=== PATIENT | female | born 1960 | race Caucasian/White ===

== ENCOUNTER 2023-11-06 04:55 | Inpatient (IN) ==
[2023-11-06 05:47] LABS: Basophils # (auto) 0.03 K/uL (0.00-0.20); Basophils % (auto) 0.5 %; Eosinophils # (auto) 0.04 K/uL (0.00-0.50); Eosinophils % (auto) 0.6 %; Immature Granulocytes # (auto) 0.01 K/uL (0.01-0.20); Immature Granulocytes % (auto) 0.2 %; Lymphocytes # (auto) 0.58 K/uL (1.20-3.40); Mean Corpuscular Hemoglobin 29.4 pg (25.0-34.0); Mean Corpuscular Hgb Conc 30.4 g/dL (32.0-36.0); Mean Corpuscular Volume 96.4 fL (80.0-100.0); Mean Platelet Volume 10.7 fL (9.4-12.4); Monocytes # (auto) 0.45 K/uL (0.11-0.59); Neutrophils % (auto) 82.7 %; Platelet Count 109 K/uL (130-400); RDW Coefficient of Variation 12.8 % (11.5-14.5); RDW Standard Deviation 46.3 fL (36.4-46.3); Red Blood Count 4.77 M/uL (4.20-5.40); White Blood Count 6.41 K/ul (4.8-10.8)
[2023-11-06 05:56] LABS: Alanine Aminotransferase 13 U/L (7-52); Albumin Globulin Ratio 1.2 (0.9-2); Albumin Level 3.6 gm/dl (3.4-5.0); Alkaline Phosphatase 83 U/L (34-104); Aspartate Aminotransferase 29 U/L (13-39); Bilirubin,Total 0.8 mg/dl (0.2-1.0); Blood Urea Nitrogen 25 mg/dl (6-23); Calcium 9.2 mg/dl (8.6-10.3); Carbon Dioxide > 45 mmol/L (21-32); Chloride 91 mmol/L (98-107); Creatinine Clr Calc Pharmacy 57.2 ml/min; Est GFR (African American) 66.7 ml/min; Est GFR (Non-African American) 57.5 ml/min; Globulin 2.9 gm/dl (2.5-4.0); Glucose 111 mg/dl (70-99(Fasting)); Potassium 4.9 mmol/L (3.5-5.1); Sodium 139 mmol/L (136-145); Total Protein 6.5 gm/dl (6.0-8.3)
[2023-11-06] MEDS: FUROSEMIDE 40 MG/4 ML VIAL IV ONE (06:10)
--- NOTE | 2023-11-06 06:11 | Emergency Department Note ---
Impression & Plan CHF exacerbation, Acute respiratory failure with hypoxia and hypercarbia ED Provider Note NAME: ZULEYKA SIMON AGE: 62 SEX: F : 1960 ARRIVES VIA: Ambulance INFORMANT: Patient, ED PROVIDER(S): Prashant Gonzalez MD CHIEF COMPLAINT: Shortness of breath, tooth pain HPI: This is a 62-year-old female presenting for shortness of breath. Patient states that whenever she lays flat she cannot breathe. She has not her legs are more swollen. She think she has CHF. EMS states that son thought she was confused. Patient was found to be hypoxic into the 70s/80s, she states she wears home oxygen only at night and was not wearing this tonight. Otherwise she notes no fevers, chills. No nausea vomiting or diarrhea. Patient also mentions a crooked tooth that is causing her slight pain ROS: See above HPI for pertinent positives & negatives. A total of 10 systems reviewed and were otherwise negative. PHYSICAL EXAMINATION: General: resting comfortably in no acute distress Head: Normocephalic and atraumatic Eyes: Normal inspection, extraocular muscles intact Ear, nose, throat: Normal external exam, numerous other caries and missing teeth Neck: Normal range of motion Respiratory: Crackles at the bases Cardiovascular: Regular rate/rhythm, no murmur GI: soft, nontender, no guarding or rebound Extremities: 2+ pitting edema Neuro: The patient awake and alert, appropriately conversive, no focal deficits, symmetric faces Skin: Warm, dry, and intact MEDICAL DECISION MAKING: This is a 62-year-old female presenting for shortness of breath. Concern for CHF versus pneumonia versus low concern for PE clinically. Patient desats to around 83% on room air when taken off oxygen while talking to me. She cannot lay flat and has orthopnea with bilateral lower extremity edema. -Unrelated she mentions a sideways growing tooth is causing her discomfort but she has no current pain, swelling. She has significantly poor dentition with numerous missing teeth. No acute abscess or infection noted. Her tooth is stable. -Chest x-ray as independently interpreted by me reveals bilateral pleural effusions, cardiomegaly. Patient given Lasix at this time -Blood work is reviewed show no significant leukocytosis or anemia. CO2 was elevated over 45. -VBG does show hypercarbia again, without acidosis. 7.4/80. Will place patient on BiPAP for this hypercarbia. -Overall patient appears well, is now more lucid after being on oxygen and tells me about her extensive history of CHF and being on Lasix and torsemide by her correctional program specialist at [place]. She does go to [place] as well for second opinion. -Will require admission for likely CHF exacerbation, hypoxia and hypercarbia -Discussed care with Dr. Epperson for admission Differential diagnosis: CHF, COPD, ACS, PE, hypercarbia, hypoxia ER treatment provided: See below Diagnostics interpreted by me: ECG: ECG independently interpreted by me with normal sinus rhythm, rate of 100,, normal MT, normal QRS, normal QTc, no ST segment elevations consistent with STEMI criteria Cardiac Monitoring: An order was placed for continuous cardiac monitoring. The monitor shows a rate of 92 with sinus rhythm. Laboratory studies: As stated above and show below. Imaging studies: See below. Past Med/Surg History Problem List (Updated 11/06/23 @ 07:52 by Prashant Gonzalez MD) Acute respiratory failure with hypoxia and hypercarbia (Acute) CHF exacerbation (Acute) Social History Smoking Status: Never smoker Preferred Language: Chinese Feels Safe at Home: Yes Results & Data (ED) Vital Signs Vital Signs - 24 hr 11/06/23 05:03 11/06/23 05:03 11/06/23 05:23 Temperature 37.7 C H Temperature Source Oral Pulse Rate 102 H 99 H 103 H Pulse Rate from SpO2 Sensor 99 H Respiratory Rate 27 H 27 H Respiratory Effort / Characteristics Respiratory Depth Respiratory Pattern Blood Pressure 115/90 115/90 Blood Pressure Mean 98 98 Pulse Oximetry 92 83 L Oxygen Delivery Method Room Air Oxygen Flow Rate Fraction of Inspired Oxygen Sepsis Recent Fever Within 48 Hours No Sepsis New/Unexplained Change in Mental Status Yes Sepsis Action Taken by Nursing No Action Required 11/06/23 05:31 11/06/23 05:42 11/06/23 06:30 Temperature Temperature Source Pulse Rate 95 H 95 H Pulse Rate from SpO2 Sensor 99 H 95 H Respiratory Rate 26 H 27 H Respiratory Effort / Characteristics Respiratory Depth Respiratory Pattern Blood Pressure 167/92 H 125/89 Blood Pressure Mean 117 101 Pulse Oximetry 93 94 94 Oxygen Delivery Method Nasal Cannula Oxygen Flow Rate 2 Fraction of Inspired Oxygen Sepsis Recent Fever Within 48 Hours Sepsis New/Unexplained Change in Mental Status Sepsis Action Taken by Nursing 11/06/23 07:03 Temperature Temperature Source Pulse Rate 92 H Pulse Rate from SpO2 Sensor Respiratory Rate 18 Respiratory Effort / Characteristics Non-Labored Spontaneous Respiratory Depth Normal Respiratory Pattern Regular Blood Pressure Blood Pressure Mean Pulse Oximetry 96 Oxygen Delivery Method Oxygen Flow Rate Fraction of Inspired Oxygen 30 Sepsis Recent Fever Within 48 Hours Sepsis New/Unexplained Change in Mental Status Sepsis Action Taken by Nursing Laboratory Data 11/06/23 05:20 11/06/23 05:20 Lab Results 11/06/23 11/06/23 Range/Units 05:20 06:28 WBC 6.41 (4.8-10.8) K/ul RBC 4.77 (4.20-5.40) M/uL Hgb 14.0 (12.0-16.0) g/dl Hct 46.0 (37.0-47.0) % MCV 96.4 (80.0-100.0) fL MCH 29.4 (25.0-34.0) pg MCHC 30.4 L (32.0-36.0) g/dL RDW Std Deviation 46.3 (36.4-46.3) fL RDW Coeff of Lydia 12.8 (11.5-14.5) % Plt Count 109 L (130-400) K/uL MPV 10.7 (9.4-12.4) fL Immature Gran % (Auto) 0.2 % Neut % (Auto) 82.7 % Lymph % (Auto) 9.0 % [place] % (Auto) 7.0 % Eos % (Auto) 0.6 % Baso % (Auto) 0.5 % Neut # (Auto) 5.30 (1.40-6.50) K/uL Lymph # (Auto) 0.58 L (1.20-3.40) K/uL [place] # (Auto) 0.45 (0.11-0.59) K/uL Eos # (Auto) 0.04 (0.00-0.50) K/uL Baso # (Auto) 0.03 (0.00-0.20) K/uL Immature Gran # (Auto) 0.01 (0.01-0.20) K/uL VBG pH 7.42 H (7.36-7.41) VBG pCO2 80 H (38-50) mmHg VBG pO2 26 mmHg VBG HCO3 52 mmol/L VBG O2 Saturation < 60.0 % VBG Base Excess 22.4 mEq/L Sodium 139 (136-145) mmol/L Potassium 4.9 (3.5-5.1) mmol/L Chloride 91 L (98-107) mmol/L Carbon Dioxide > 45 H* (21-32) mmol/L Anion Gap TNP BUN 25 H (6-23) mg/dl Creatinine 1.04 (0.6-1.2) mg/dl Est Cr Clr Drug Dosing 57.2 ml/min Est GFR ( Amer) 66.7 ml/min Est GFR (Non-Af Amer) 57.5 ml/min BUN/Creatinine Ratio 24.0 H (10-20) Glucose 111 H (70-99(Fasting)) mg/dl Calcium 9.2 (8.6-10.3) mg/dl Total Bilirubin 0.8 (0.2-1.0) mg/dl AST 29 (13-39) U/L ALT 13 (7-52) U/L Alkaline Phosphatase 83 (34-104) U/L Troponin I High Sens 6.2 (0-14) pg/ml B-Natriuretic Peptide 71 (0-100) pg/ml Total Protein 6.5 (6.0-8.3) gm/dl Albumin 3.6 (3.4-5.0) gm/dl Globulin 2.9 (2.5-4.0) gm/dl Albumin/Globulin Ratio 1.2 (0.9-2) Administered Medications Discontinued Medications Furosemide (Furosemide 40 Mg/4 Ml Vial) 40 mg IV ONE ONE Stop: 11/06/23 05:49 Last Admin: 11/06/23 06:10 Dose: 40 mg Documented By: Imaging Data Radiologist's Impression: Chest X-Ray 11/06/23 05:19 XR chest 1V portable CLINICAL HISTORY: SOB, hypoxia, CHF COMPARISON STUDY: No previous studies for comparison. FINDINGS: There are low lung volumes with suspected elevation of the right hemidiaphragm. Bilateral pleural effusions are noted, right larger than left with associated bibasilar opacities. There is no pneumothorax. Suspected cardiomegaly. Interstitial thickening is noted. IMPRESSION: 1. Cardiomegaly with interstitial pulmonary edema. 2. Bilateral pleural effusions, right larger than left. These are likely at least moderate in size. Associated bibasilar opacities could reflect atelectasis or consolidation. ACT 112: Negative or not required by law. Electronically signed by: Marcel Clements M.D. 11/06/2023 6:26 AM Discharge Plan Visit Data Chief Complaint: Illness Stated Complaint: Jaw Issues ED Provider: Prashant Gonzalez Discharge Problem: CHF exacerbation, Acute respiratory failure with hypoxia and hypercarbia Forms Stand Alone Forms: [facility] Referrals Referrals: Angelo Alexis, [Primary Care Provider] -
[2023-11-06 06:22] LABS: Troponin I High Sensitivity 6.2 pg/ml (0-14)
--- NOTE | 2023-11-06 06:27 | XRay Report ---
XR chest 1V portable CLINICAL HISTORY: SOB, hypoxia, CHF COMPARISON STUDY: No previous studies for comparison. FINDINGS: There are low lung volumes with suspected elevation of the right hemidiaphragm. Bilateral p leural effusions are noted, right larger than left with associated bibasilar opacities. There is no p neumothorax. Suspected cardiomegaly. Interstitial thickening is noted. IMPRESSION: 1. Cardiomegaly with interstitial pulmonary edema. 2. Bilateral pleural effusions, right larger than left. These are likely at least moderate in size. A ssociated bibasilar opacities could reflect atelectasis or consolidation. ACT 112: Negative or not required by law. Electronically signed by: Marcel Clements M.D. 11/06/2023 6:26 AM
[2023-11-06 06:38] LABS: Base Excess VBG 22.4 mEq/L; HCO3 VBG 52 mmol/L; Oxygen Saturation VBG < 60.0 %; PCO2 VBG 80 mmHg (38-50); PO2 VBG 26 mmHg; pH VBG 7.42 (7.36-7.41)
--- NOTE | 2023-11-06 07:38 | History & Physical Report ---
Date of Service November 06, 2023 Assessment & Plan (1) Acute respiratory failure with hypoxia and hypercarbia: Plan: Presents with worsening weight gain, peripheral edema, abdominal discomfort, orthopnea and shortness of breath over several months Chest x-ray consistent with heart failure. She is on torsemide every other day at home but no old records available at this time. Interestingly, BNP is normal but she is obese so could be falsely low. No ischemic changes on ECG and troponin negative Hypoxic to 83% on arrival on room air-placed on supplemental O2 Admit to PCU for telemetry monitoring for arrhythmia Continue Lasix 40 Mg IV twice daily Check echocardiogram Follow BMP magnesium and replace electrolytes as needed Also with history of possible COPD as she is on maintenance inhalers, but no wheezing on examination. She does have significant chronic metabolic alkalosis which is compensatory with a normal pH on VBG and elevated CO2 Use BiPAP at bedtime and will see if can get qualified for home BiPAP Follows with pulmonology as an outpatient Keep pulse ox greater than 88% with supplemental O2 and wean off as able to (2) CHF exacerbation: Plan: As noted above, unclear if EF preserved or not Check echo, give IV Lasix Strict I's and O's, daily weights, low-sodium diet, fluid restrict (3) Diabetes mellitus type 2 in obese: Plan: Continue Lantus 25 units twice a day and NovoLog sliding scale Check hemoglobin A1c in the morning, Accu-Cheks before meals and at bedtime (4) Cirrhosis: Plan: As per history from her sister, patient unaware of this diagnosis This would account for her mild thrombocytopenia. LFTs are normal Continue to keep bowels moving with Linzess Follows with GI Some of her mild confusion could be from hyperammonemia but this was not checked on admission (5) HTN (hypertension), benign: Plan: Blood pressures are controlled Continue home lisinopril, giving IV Lasix (6) COPD (chronic obstructive pulmonary disease): Plan: Continue maintenance inhaler No acute exacerbation Obtain pulmonology records (7) Depression with anxiety: Plan: Reports of her son in May and after a long illness, she was depressed about his illness Continue home buspirone and as needed lorazepam Consider addition of SSRI (8) Thrombocytopenia: Plan: Likely secondary to cirrhosis Follow CBC (9) GERD (gastroesophageal reflux disease): Plan: Continue PPI Plan Chronic pain/neuropathy-continue gabapentin, tramadol as needed Allergies-continue cetirizine as needed DVT prophylaxis-Lovenox SQ Disposition-admit to PCU Full code and reports she would like her sister and her son to be her decision makers if she is unable to make decisions History of Present Illness Chief Complaint: Shortness of breath Primary Care Provider: Angelo Alexis, DO This patient is a 62-year-old female with a history of possible COPD from secondhand smoke, DM 2, CHF, cirrhosis of the liver, allergies, neuropathy, HTN, chronic constipation, and anxiety/depression who presents to the ER with ongoing and worsening shortness of breath, orthopnea, leg swelling and weight gain over the last several months. She complains of chronic upper abdominal pressure as well. She reports being in and out of [facility] a couple of times and has been seen by a piggyback clerk and oral surgery physician. Her sister later called in and told the nurse that the patient was recently diagnosed with cirrhosis of the liver. Patient also complains of pain in the right side of the jaw that came on acutely after using a Q-tip yesterday and complains of painful teeth that are "rotten." Denies fevers or chills, denies productive cough. No blood in her stool or urine. She was noted initially to be mildly confused in the ER but this improved after she was placed on supplemental oxygen and her hypoxia improved. She was then placed on BiPAP for her elevated CO2 levels. In the ER, she was noted to be hypoxic to 83% on room air and significantly hypercapnic but her pH was normal on VBG. Chest x-ray was consistent with cardiomegaly and pulmonary edema with pleural effusions. She was given a dose of IV Lasix. Allergies Allergy/AdvReac Type Severity Reaction Status Date / Time amoxicillin Allergy Severe Caused Unverified 11/06/23 08:33 itching in joints Penicillins Allergy Severe Caused Unverified 11/06/23 08:33 itching in joints vancomycin AdvReac Severe Caused Unverified 11/06/23 08:33 Kidney Damage Home Medications Medication Instructions Recorded Confirmed Type albuterol sulfate 90 mcg/actuation 2 puff inhalation Q3H PRN 11/06/23 11/06/23 History aerosol inhaler Shortness Of Breath Or Wheezing buspirone 10 mg tablet 10 mg PO TID 11/06/23 11/06/23 History fluticasone furoate 100 1 inh inhalation DAILY 11/06/23 11/06/23 History mcg/actuation blister powder for inhalation (Arnuity Ellipta) gabapentin 100 mg capsule 100 mg PO TID 11/06/23 11/06/23 History insulin glargine 100 unit/mL (3 25 unit subcut BID 11/06/23 11/06/23 History mL) subcutaneous pen (Lantus Solostar U-100 Insulin) levocetirizine 5 mg tablet 5 mg PO QPM 11/06/23 11/06/23 History linaclotide 72 mcg capsule 72 mcg PO DAILY 11/06/23 11/06/23 History (Linzess) lisinopril 5 mg tablet 5 mg PO DAILY 11/06/23 11/06/23 History lorazepam 0.5 mg tablet 0.5 mg PO BID PRN severe anxiety 11/06/23 11/06/23 His tory meloxicam 15 mg tablet 15 mg PO DAILY 11/06/23 11/06/23 History pantoprazole 40 mg tablet,delayed 40 mg PO DAILY 11/06/23 11/06/23 History release torsemide 20 mg tablet 20 mg PO Q OTHER DAY 11/06/23 11/06/23 History tramadol 50 mg tablet 50 mg PO Q6H PRN Severe Pain 11/06/23 11/06/23 History (Scale Score 7-10) Past Med/Surg History Problem List (Updated 11/07/23 @ 08:31 by Haleigh Epperson MD) Cirrhosis GERD (gastroesophageal reflux disease) COPD (chronic obstructive pulmonary disease) Thrombocytopenia Depression with anxiety HTN (hypertension), benign Diabetes mellitus type 2 in obese Acute respiratory failure with hypoxia and hypercarbia (Acute) CHF exacerbation (Acute) Family History (Updated 11/07/23 @ 08:24 by Haleigh Epperson MD) Other Family history non-contributory Social History (Updated 11/07/23 @ 08:24 by Haleigh Epperson MD) Smoking Status: Never smoker Second Hand Exposure: Yes; Hx Alcohol Use: No Hx Substance Use: No Preferred Language: Burmese Communication Ability: Effective Learning And Development Administrator Required: No Beliefs That Will Affect Care: None Current Living Situation: Family Current Living Situation Comment: lives with middle son Feels Safe at Home: Yes Assistive Devices: Cane and Walker Review of Systems Review of Systems: All systems reviewed & are unremarkable except as noted in HPI & below Physical Exam Constitutional: WD/WN, vitals as above Eyes: PERRL, conjunctivae normal, anicteric sclerae ENMT: external ear and nose normal, oropharynx normal Ears: no hearing impairment, no external ear abnormality, no EAC abnormality and no TM abnormality Neck: trachea midline, no thyromegaly Respiratory: normal respiratory effort; no cough Auscultation: + diminished lung sounds (At bases) and + crackles (Bibasilar); no rhonchi and no wheezes Cardiovascular: Rate/Rhythm: regular rate and regular rhythm Heart Sounds: no murmur Extremities: + edema (2+ pitting edema to the knees bilaterally) Gastrointestinal (Abdomen): normal bowel sounds, soft, nontender, no hepatosplenomegaly Skin: Chronic venous stasis changes left greater than right legs with small scabs on left leg Psychiatric: Orientation: alert, oriented to person, oriented to place and cooperative Genitourinary: Urine in vacuum canister clear and yellow Results & Data Results & Data Vital Signs (Past 12 Hours) Vital Signs Temp Pulse Resp BP Pulse Ox O2 Del Method O2 Flow Rate 11/06/23 07:03 92 H 18 96 11/06/23 06:30 95 H 27 H 125/89 94 11/06/23 05:42 95 H 26 H 167/92 H 94 11/06/23 05:31 93 Nasal Cannula 2 11/06/23 05:23 37.7 C H 103 H 27 H 115/90 83 L Room Air 11/06/23 05:03 99 H 27 H 115/90 92 11/06/23 05:03 102 H FiO2 11/06/23 07:03 30 11/06/23 06:30 11/06/23 05:42 11/06/23 05:31 11/06/23 05:23 11/06/23 05:03 11/06/23 05:03 Laboratory Results CBC, CMP, VBG, troponin, BNP, UA reviewed Diagnostic Findings Chest x-ray image personally reviewed by me and ordered further IV Lasix ECG Additional Comments: ECG on 11/06/2023 at 5:10 AM with normal sinus rhythm, rate 100, artifact but no obvious ischemic changes Code Status & VTE Plan Code Status Full code VTE Prophylaxis Plan VTE Prophylaxis will be ordered: Yes PG Care Time/CCT Total # of Minutes Spent Total Time Spent with Patient: Total time spent is greater than 50% in coordination of care (as documented) at patient's floor/unit and/or counseling patient: Coding Level of Care Code 53099 INT INP/OBS CARE 3/75MIN Diagnoses Acute respiratory failure with hypoxia and hypercarbia J96.01; J96.02 CHF exacerbation I50.9 Diabetes mellitus type 2 in obese E11.69; E66.9 Cirrhosis K74.60 HTN (hypertension), benign I10 COPD (chronic obstructive pulmonary disease) J44.9 Depression with anxiety F41.8 Thrombocytopenia D69.6 GERD (gastroesophageal reflux disease) K21.9
[2023-11-06] MEDS ORDERED: ONDANSETRON INJ 2 MG/ML 2 ML VIAL IV PRN (12:22)
[2023-11-06] MEDS ORDERED: CARBOHYDRATES FOR HYPOGLYCEMIA PO PRN (12:22)
[2023-11-06] MEDS ORDERED: ACETAMINOPHEN 325 MG TAB PO PRN (12:22)
[2023-11-06] MEDS ORDERED: DEXTROSE 50% 50 ML SYRINGE IV PRN (12:22)
[2023-11-06] MEDS ORDERED: GLUCOSE 40% GEL 15 GM TUBE PO PRN (12:22)
[2023-11-06] MEDS ORDERED: GLUCOSE 10 TAB/TUBE PO PRN (12:22)
[2023-11-06] MEDS ORDERED: ALBUTEROL HFA 8 GM INHALER INH PRN (12:22)
[2023-11-06] MEDS ORDERED: POLYETHYLENE (MIRALAX) 17 GM PACK PO PRN (12:22)
[2023-11-06] MEDS ORDERED: GLUCAGON FOR INJ 1 MG VIAL SQ PRN (12:22)
[2023-11-06] MEDS: FLUTICASONE FUROATE 100MCG 14 PUFFS/INHALER INH SCH (12:59)
[2023-11-06] MEDS: GABAPENTIN 100 MG CAP PO SCH (12:59)
[2023-11-06] MEDS: busPIRone 5 MG TAB PO SCH (12:59)
[2023-11-06] MEDS: PANTOprazole 40 MG TAB PO SCH (12:59)
[2023-11-06] MEDS: ENOXAPARIN INJ 40 MG/0.4 ML SYR SQ SCH (12:59)
[2023-11-06] MEDS: INSULIN ASPART PER UNIT CHARGE SC SCH (13:02)
--- NOTE | 2023-11-06 16:50 | XCELERA ---
[id number]
[2023-11-06] MEDS: FUROSEMIDE 40 MG/4 ML VIAL IV SCH (17:10)
[2023-11-06 19:19] LABS: Appearance Urine Cloudy (Clear); Bilirubin Urine Negative (Negative); Blood Urine Negative (Negative); Cast Urine Automated 0-2 /lpf (0-2); Color Urine Yellow; Epithelial Cell Urine Auto 0-2 /hpf (0-2); Glucose Urine UA Negative (Negative); Ketones Urine Negative (Negative); Leukocyte Esterase Urine Trace (Negative); Nitrite Urine Negative (Negative); Protein Urine Negative (Negative); Specific Gravity Urine 1.008 (1.000-1.030); Urobilinogen Urine Negative (Negative); WBC Urine Automated 0-5 /hpf (0-5); pH Urine 7.5 (4.5-7.5)
[2023-11-06 19:47] LABS: Bacteria Urine Automated 1+ (None Seen)
[2023-11-06] MEDS: CETIRIZINE HCL 10 MG TABLET PO SCH (21:20)
[2023-11-06] MEDS: LANTUS PER UNIT CHARGE SQ SCH (21:30)
[2023-11-07 06:42] LABS: Basophils # (auto) 0.03 K/uL (0.00-0.20); Basophils % (auto) 0.7 %; Eosinophils # (auto) 0.06 K/uL (0.00-0.50); Eosinophils % (auto) 1.5 %; Hematocrit (blood only) 41.8 % (37.0-47.0); Hemoglobin 12.9 g/dl (12.0-16.0); Immature Granulocytes # (auto) 0.01 K/uL (0.01-0.20); Immature Granulocytes % (auto) 0.2 %; Lymphocytes # (auto) 0.88 K/uL (1.20-3.40); Lymphocytes % (auto) 21.6 %; Mean Corpuscular Hgb Conc 30.9 g/dL (32.0-36.0); Mean Corpuscular Volume 93.9 fL (80.0-100.0); Mean Platelet Volume 10.9 fL (9.4-12.4); Monocytes # (auto) 0.43 K/uL (0.11-0.59); Monocytes % (auto) 10.6 %; Neutrophils # (auto) 2.66 K/uL (1.40-6.50); Neutrophils % (auto) 65.4 %; Platelet Count 102 K/uL (130-400); RDW Coefficient of Variation 13.3 % (11.5-14.5); RDW Standard Deviation 46.2 fL (36.4-46.3); Red Blood Count 4.45 M/uL (4.20-5.40); White Blood Count 4.07 K/ul (4.8-10.8)
[2023-11-07 07:04] LABS: Blood Urea Nitrogen 29 mg/dl (6-23); Calcium 8.8 mg/dl (8.6-10.3); Carbon Dioxide > 45 mmol/L (21-32); Chloride 90 mmol/L (98-107); Creatinine Clr Calc Pharmacy 40.6 ml/min; Est GFR (African American) 47.4 ml/min; Est GFR (Non-African American) 40.9 ml/min; Glucose 62 mg/dl (70-99(Fasting)); Magnesium 2.1 mg/dl (1.7-2.4); Potassium 4.3 mmol/L (3.5-5.1); Sodium 139 mmol/L (136-145)
[2023-11-07 07:21] LABS: Thyroid Stimulating Hormone 0.852 uIu/ml (0.300-4.500)
[2023-11-07 07:35] LABS: Estimated Average Glucose 160 mg/dl; Hemoglobin A1C 7.2 % (4.5-5.6)
[2023-11-07] MEDS: linaCLOtide 72 MCG CAPSULE PO SCH (08:47)
[2023-11-07] MEDS: LANTUS PER UNIT CHARGE SQ SCH (08:48)
[2023-11-07] MEDS ORDERED: lisinopril 5 MG TAB PO SCH (09:00)
--- NOTE | 2023-11-07 17:47 | Hospitalist Progress Note ---
Date of Service November 07, 2023 Assessment & Plan (1) Acute respiratory failure with hypoxia and hypercarbia: Plan: Presents with worsening weight gain, peripheral edema, abdominal discomfort, orthopnea and shortness of breath over several months Chest x-ray consistent with heart failure. She is on torsemide every other day at home but no old cardiology records available at this time. Interestingly, BNP is normal but she is obese so could be falsely low. BNP on outside labs from 1 month ago was elevated. No ischemic changes on ECG and troponin negative Hypoxic to 83% on arrival on room air-placed on supplemental O2 Improving with diuresis. Echocardiogram with mild LVH and mildly dilated RV with normal function, preserved EF, normal valves Continue on telemetry monitoring for arrhythmia-remains in sinus rhythm Continue Lasix 40 Mg IV twice daily and monitor renal function and replace electrolytes as needed Also with history of possible COPD as she is on maintenance inhalers, but no wheezing on examination. She does have significant chronic metabolic alkalosis which is compensatory with a normal pH on VBG and elevated CO2 Use BiPAP at bedtime and will see if can get qualified for home BiPAP-patient is refusing to use the BiPAP here-will discuss with her Follows with pulmonology as an outpatient-I was able to review a report of an outside CT of the chest which showed evidence of CHF but not pulmonary fibrosis Keep pulse ox greater than 88% with supplemental O2 and wean off as able to (2) (HFpEF) heart failure with preserved ejection fraction: Plan: Presented with symptoms as above, now improving on IV diuretics with less orthopnea and significantly improved peripheral edema Strict I's and O's, daily weights, low-sodium diet, fluid restrict Continue Lasix 40 Mg IV twice daily and monitor renal function (3) Diabetes mellitus type 2 in obese: Plan: With some hypoglycemia Decrease Lantus to 10 units twice a day and continue NovoLog sliding scale but get rid of carbohydrate coverage Hemoglobin A1c well-controlled at 7.2% Continue Accu-Cheks before meals and at bedtime (4) Cirrhosis: Plan: As per report but no imaging to confirm although this would account for her mild thrombocytopenia. LFTs are normal Continue to keep bowels moving with Linzess Follows with GI Some of her mild confusion on admission could be from hyperammonemia but this was not checked and now her mentation is normal Will likely add on spironolactone (5) HTN (hypertension), benign: Plan: Blood pressures are controlled Will hold home lisinopril while giving IV Lasix especially given mild rise in creatinine (6) COPD (chronic obstructive pulmonary disease): Plan: Continue maintenance inhaler No acute exacerbation Obtain pulmonology records-awaiting Recent CT of the chest shows more evidence of CHF but she has significantly elevated CO2 on both VBG and compensatory metabolic alkalosis Trial BiPAP while here and she would likely qualify for home BiPAP (7) Depression with anxiety: Plan: Reports of her son in May and after a long illness, she was depressed about his illness Continue home buspirone and as needed lorazepam Consider addition of SSRI (8) Thrombocytopenia: Plan: Likely secondary to cirrhosis, mild in the low 100s Follow CBC (9) GERD (gastroesophageal reflux disease): Plan: Continue PPI Has a history of Zenker's diverticulum-follows with GI (10) Aspiration into airway: Plan: Noted on esophageal imaging report reviewed from outside studies Follows with GI and pulmonology (11) PAUL positive: Plan: Noted on outside labs, ordered by pulmonology and patient made reference to the fact that she is being referred to a middleware systems architect Plan Chronic pain/neuropathy-continue gabapentin, tramadol as needed Allergies-continue cetirizine as needed DVT prophylaxis-Lovenox SQ Disposition-continued stay on PCU Full code and reports she would like her sister and her son to be her decision makers if she is unable to make decisions I called her sister and left a voicemail on 11/06 Admission and Anticipated Discharge Date Admission Date: November 06, 2023 Subjective Patient reports feeling better today, less shortness of breath. She declined to use the BiPAP last night.. Reports her leg swelling is significantly improved. She is eating. I was able to review records that her sister brought in to include recent blood work and imaging from outside sources Telemetry with normal sinus rhythm with rates in the 80s to 90s Physical Exam Constitutional: WD/WN, vitals as above Neck: trachea midline, no thyromegaly Respiratory: normal respiratory effort; no cough Auscultation: + diminished lung sounds (At bases) and + crackles (Bibasilar); no rhonchi and no wheezes Cardiovascular: Rate/Rhythm: regular rate and regular rhythm Heart Sounds: no murmur Extremities: + edema (1+ pitting edema to the mid leg bilaterally- much improved) Gastrointestinal (Abdomen): normal bowel sounds, soft, nontender, no hepatosplenomegaly Psychiatric: Orientation: alert, oriented to person, oriented to place and academic success coordinator perative Results & Data Results & Data Vital Signs (Past 12 Hours) Vital Signs Temp Pulse Pulse Resp BP BP Pulse Ox 11/07/23 17:16 93 H 11/07/23 15:45 36.4 C L 86 20 105/65 96 11/07/23 15:00 11/07/23 11:23 36.7 C 84 19 103/66 96 11/07/23 10:13 89 11/07/23 07:43 11/07/23 07:16 36.8 C 91 H 18 125/79 96 O2 Del Method O2 Del Method O2 Flow Rate O2 Flow Rate 11/07/23 17:16 11/07/23 15:45 Room Air 11/07/23 15:00 Nasal Cannula 2 11/07/23 11:23 Room Air 11/07/23 10:13 11/07/23 07:43 Nasal Cannula 2 11/07/23 07:16 Nasal Cannula 2 Laboratory Results CBC, BMP, TSH, magnesium, hemoglobin A1c, urine culture, urinalysis reviewed Diagnostic Findings Echocardiogram reviewed PG Care Time/CCT Total # of Minutes Spent Total Time Spent with Patient: Total time spent is greater than 50% in coordination of care (as documented) at patient's floor/unit and/or counseling patient: Coding Level of Care Code 15400 SUB INP/OBS CARE 3/50MIN Diagnoses Acute respiratory failure with hypoxia and hypercarbia J96.01; J96.02 (HFpEF) heart failure with preserved ejection fraction I50.30 Diabetes mellitus type 2 in obese E11.69; E66.9 Cirrhosis K74.60 HTN (hypertension), benign I10 COPD (chronic obstructive pulmonary disease) J44.9 Depression with anxiety F41.8 Thrombocytopenia D69.6 GERD (gastroesophageal reflux disease) K21.9 Aspiration into airway T17.908A PAUL positive R76.8
--- NOTE | 2023-11-07 22:49 | Electrocardiogram Report ---
Test Reason : Blood Pressure : / mmHG Vent. Rate : 100 BPM Atrial Rate : 100 BPM P-R Int : 142 ms QRS Dur : 074 ms QT Int : 312 ms P-R-T Axes : 051 -04 032 degrees QTc Int : 402 ms Poor data quality, interpretation may be adversely affected Normal sinus rhythm Possible Left atrial enlargement Cannot rule out Anterior infarct , age undetermined Abnormal ECG No previous ECGs available Confirmed by Tyree Verdugo ([id number]) on 11/07/2023 10:49:32 PM Referred By: REFERRED SELF Confirmed By:Tyree Verdugo
[2023-11-08] MEDS: LORazepam 0.5 MG TAB PO PRN (03:37)
[2023-11-08 08:17] LABS: Alanine Aminotransferase 12 U/L (7-52); Albumin Globulin Ratio 1.2 (0.9-2); Albumin Level 3.2 gm/dl (3.4-5.0); Alkaline Phosphatase 71 U/L (34-104); Aspartate Aminotransferase 30 U/L (13-39); BUN Creatinine Ratio 23.4 (10-20); Bilirubin,Total 0.5 mg/dl (0.2-1.0); Blood Urea Nitrogen 33 mg/dl (6-23); Calcium 8.7 mg/dl (8.6-10.3); Carbon Dioxide > 45 mmol/L (21-32); Chloride 89 mmol/L (98-107); Creatinine Clr Calc Pharmacy 40.4 ml/min; Est GFR (African American) 46.2 ml/min; Est GFR (Non-African American) 39.8 ml/min; Globulin 2.7 gm/dl (2.5-4.0); Glucose 173 mg/dl (70-99(Fasting)); Potassium 4.4 mmol/L (3.5-5.1); Sodium 139 mmol/L (136-145); Total Protein 5.9 gm/dl (6.0-8.3)
[2023-11-08 08:22] LABS: Basophils # (auto) 0.02 K/uL (0.00-0.20); Basophils % (auto) 0.6 %; Eosinophils # (auto) 0.07 K/uL (0.00-0.50); Hematocrit (blood only) 42.9 % (37.0-47.0); Hemoglobin 13.4 g/dl (12.0-16.0); Lymphocytes # (auto) 0.71 K/uL (1.20-3.40); Lymphocytes % (auto) 20.5 %; Mean Corpuscular Hemoglobin 29.5 pg (25.0-34.0); Mean Corpuscular Hgb Conc 31.2 g/dL (32.0-36.0); Mean Corpuscular Volume 94.3 fL (80.0-100.0); Monocytes # (auto) 0.37 K/uL (0.11-0.59); Monocytes % (auto) 10.7 %; Neutrophils # (auto) 2.29 K/uL (1.40-6.50); Neutrophils % (auto) 66.2 %; Platelet Count 89 K/uL (130-400); Platelet Estimate Decreased (Normal); RDW Coefficient of Variation 13.2 % (11.5-14.5); RDW Standard Deviation 45.7 fL (36.4-46.3); Red Blood Count 4.55 M/uL (4.20-5.40); Stomatocytes 2+; White Blood Count 3.46 K/ul (4.8-10.8)
--- NOTE | 2023-11-08 09:10 | XRay Report ---
XR chest 1V portable CLINICAL HISTORY: f/u pleural effusions TECHNIQUE: Single frontal radiograph of the chest was obtained. Comparison: Comparison is made to chest radiograph 11/06/2023 FINDINGS: No lines and tubes are seen. Calcified aortic knob is seen. Lungs are underinflated but clear. There is a small left pleural effusion. IMPRESSION: Small left pleural effusion. No right pleural effusion. This represents a decrease from prior exam wh ere both effusions are moderate. ACT 112: Negative or not required by law. Electronically signed by: Shadi Francis M.D. 11/08/2023 9:07 AM
[2023-11-08] MEDS: acetaZOLAMIDE 250 MG in SYRINGE 0 ML IV STA (09:36)
--- NOTE | 2023-11-08 15:03 | Hospitalist Progress Note ---
Date of Service November 08, 2023 Assessment & Plan (1) Acute respiratory failure with hypoxia and hypercarbia: Plan: Presents with worsening weight gain, peripheral edema, abdominal discomfort, orthopnea and shortness of breath over several months Chest x-ray consistent with heart failure. She is on torsemide every other day at home but no old cardiology records available at this time. Interestingly, BNP is normal but she is obese so could be falsely low. BNP on outside labs from 1 month ago was elevated. No ischemic changes on ECG and troponin negative Hypoxic to 83% on arrival on room air-placed on supplemental O2 and now 96% on 2L--> can wean VBG 7.4/80 on arrival and serum bicarb remains > 45 Improving with diuresis. 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 never had head/neck/thorax surgery Encouraged use of BiPAP at bedtime and will see if can get qualified for home BiPAP-will ask Healthcare Marketer to look into this and also request outpt PFTs from her PULM office Follows with pulmonology as an outpatient-I was able to review a report of an outside CT of the chest which showed evidence of CHF but not pulmonary fibrosis She would like to switch to [facility]-will get her a referral to outpt [place] [facility] Keep pulse ox greater than 88% with supplemental O2 and wean off as able to (2) (HFpEF) heart failure with preserved ejection fraction: Plan: Presented with symptoms as above, now improving on IV diuretics with less orthopnea and significantly improved peripheral edema, weight is down Strict I's and O's, daily weights, low-sodium diet, fluid restrict 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 LFTs are normal Continue to keep bowels moving with Linzess Follows with GI Some of her mild confusion on admission could be from hyperammonemia but this was not checked and now her mentation is normal Will likely add on spironolactone as above (5) HTN (hypertension), benign: Plan: Blood pressures are controlled hold home lisinopril while diuresing especially given mild rise in creatinine (6) COPD (chronic obstructive pulmonary disease): Plan: Continue maintenance inhaler No acute exacerbation Obtain pulmonology records-awaiting. Suspect more of a hypoventilation syndrome from diaphragm paralysis and/or obesity hypoventilation- will work on getting BiPAP Recent CT of the chest shows more evidence of CHF but she has significantly elevated CO2 on both VBG and compensatory metabolic alkalosis Trial BiPAP while here and she would likely qualify for home BiPAP (7) Depression with anxiety: Plan: Reports of her son in May and after a long illness, she was depressed about his illness Continue home buspirone and as needed lorazepam Consider addition of SSRI (8) Thrombocytopenia: Plan: Likely secondary to cirrhosis, mild in the low 100s Follow CBC (9) GERD (gastroesophageal reflux disease): Plan: Continue PPI Has a history of Zenker's diverticulum-follows with GI (10) Aspiration into airway: Plan: Noted on esophageal imaging report reviewed from outside studies Follows with GI and pulmonology Appreciate Speech tx consult-needs esophageal diet, smaller portions, eventual video swallow (11) PAUL positive: Plan: Noted on outside labs, ordered by pulmonology and patient made reference to the fact that she is being referred to a burglar alarm superintendent Plan Chronic pain/neuropathy-continue gabapentin, tramadol as needed Allergies-continue cetirizine as needed DVT prophylaxis-Lovenox SQ Disposition-continued stay on PCU, improving Full code and reports she would like her sister and her son to be her decision makers if she is unable to make decisions I called her sister and left a voicemail on 11/06 and again on 11/07 Admission and Anticipated Discharge Date Admission Date: November 06, 2023 Subjective Feeling better. C/o occasional jolts of muscle spasms through arms and legs at times. Explained importance of trying to use BiPAP for tonight. Feels much less SOB, is pleased her wrinkles in her thighs are back Tele with NSR rates 80-90s Physical Exam Constitutional: WD/WN, vitals as above Neck: trachea midline, no thyromegaly Respiratory: normal respiratory effort; no cough Auscultation: + diminished lung sounds (At bases); no crackles, no rhonchi and no wheezes Cardiovascular: Rate/Rhythm: regular rate and regular rhythm Heart Sounds: no murmur Extremities: + edema (trace pitting edema to the mid leg bilaterally-much improved) Gastrointestinal (Abdomen): normal bowel sounds, soft, nontender, no hepatosplenomegaly Psychiatric: Orientation: alert, oriented to person, oriented to place and cooperative Results & Data Results & Data Vital Signs (Past 12 Hours) Vital Signs Temp Pulse Pulse Resp BP Pulse Ox O2 Del Method 11/08/23 11:01 36.8 C 89 20 95/67 L 97 Nasal Cannula 11/08/23 08:00 Nasal Cannula 11/08/23 07:48 36.8 C 94 H 20 111/74 96 Nasal Cannula 11/08/23 07:43 94 H O2 Flow Rate 11/08/23 11:01 2 11/08/23 08:00 2 11/08/23 07:48 2 11/08/23 07:43 Laboratory Results CBC, BMP, magnesium, urine cx reviewed PG Care Time/CCT Total # of Minutes Spent Total Time Spent with Patient: Total time spent is greater than 50% in coordination of care (as documented) at patient's floor/unit and/or counseling patient: Coding Level of Care Code 27942 SUB INP/OBS CARE 3/50MIN Diagnoses Acute respiratory failure with hypoxia and hypercarbia J96.01; J96.02 (HFpEF) heart failure with preserved ejection fraction I50.30 Diabetes mellitus type 2 in obese E11.69; E66.9 Cirrhosis K74.60 HTN (hypertension), benign I10 COPD (chronic obstructive pulmonary disease) J44.9 Depression with anxiety F41.8 Thrombocytopenia D69.6 GERD (gastroesophageal reflux disease) K21.9 Aspiration into airway T17.908A PAUL positive R76.8
[2023-11-09 07:26] LABS: Albumin Level 3.4 gm/dl (3.4-5.0); BUN Creatinine Ratio 33.6 (10-20); Bilirubin Direct 0.1 mg/dl (0-0.2); Bilirubin,Total 0.6 mg/dl (0.2-1.0); Calcium 9.1 mg/dl (8.6-10.3); Creatinine Clr Calc Pharmacy 50.3 ml/min; Est GFR (African American) 60.3 ml/min; Magnesium 2.2 mg/dl (1.7-2.4); Potassium 4.3 mmol/L (3.5-5.1); Total Protein 6.3 gm/dl (6.0-8.3)
[2023-11-09] MEDS: SPIRONOLACTONE 12.5 MG TAB PO SCH (10:33)
--- NOTE | 2023-11-09 16:05 | Hospitalist Progress Note ---
Date of Service November 09, 2023 Assessment & Plan (1) Acute respiratory failure with hypoxia and hypercarbia: Plan: Presents with worsening weight gain, peripheral edema, abdominal discomfort, orthopnea and shortness of breath over several months Chest x-ray consistent with heart failure. She is on torsemide every other day at home but no old cardiology records available at this time. Interestingly, BNP is normal but she is obese so could be falsely low. BNP on outside labs from 1 month ago was elevated. No ischemic changes on ECG and troponin negative Also with history of possible COPD as she is on maintenance inhalers, but no wheezing on examination. 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 Serum bicarbonate now down to 44 after receiving 1 dose of Diamox and starting on BiPAP therapy at nighttime Improving with diuresis. Echocardiogram with mild LVH and mildly dilated RV wit h normal function, preserved EF, normal valves Start spironolactone 12.5 mg p.o. daily Continue on telemetry monitoring for arrhythmia-remains in sinus rhythm Encouraged use of BiPAP at bedtime and will see if can get qualified for home BiPAP-will ask Forging Roll Operator to look into this and also request outpt PFTs from her PULM office-ordered overnight pulse ox on 2 L for tonight and in a.m. ABG She would like to switch to [place] [facility]-will get her a referral to outpt [place] [facility] Keep pulse ox greater than 88% with supplemental O2 and wean off as able to (2) (HFpEF) heart failure with preserved ejection fraction: Plan: Presented with symptoms as above, now improving on IV diuretics with less orthopnea and significantly improved peripheral edema, weight is down Strict I's and O's, daily weights, low-sodium diet, fluid restrict Received IV Lasix and 1 dose of Diamox, much improved Will add aldactone 12.5 mg daily given h/o cirrhosis (3) Diabetes mellitus type 2 in obese: Plan: With some hypoglycemia now improved with lowering Lantus dose COntinue Lantus 10 units twice a day and continue NovoLog sliding scale Hemoglobin A1c well-controlled at 7.2% Continue Accu-Cheks before meals and at bedtime (4) Cirrhosis: Plan: As per report but no imaging to confirm although this would account for her mild thrombocytopenia. LFTs are normal Continue to keep bowels moving with Linzess Follows with GI Some of her mild confusion on admission could be from hyperammonemia but this was not checked and now her mentation is normal Will add on spironolactone as above (5) HTN (hypertension), benign: Plan: Blood pressures are controlled Holding home lisinopril while diuresing And may not need to resume (6) COPD (chronic obstructive pulmonary disease): Plan: Questionable diagnosis but is on maintenance inhalers for such After discussion with the patient's sister, it seems more likely she has restrictive lung disease, awaiting faxed PFT results Suspect more of a hypoventilation syndrome from diaphragm paralysis and/or obesity hypoventilation- will work on getting BiPAP Recent CT of the chest shows more evidence of CHF but she has significantly elevated CO2 on both VBG and compensatory metabolic alkalosis Trial BiPAP while here and she would likely qualify for home BiPAP Overnight pulse ox and a.m. ABG planned for tomorrow (7) Depression with anxiety: Plan: Reports of her son in May and after a long illness, she was depressed about his illness Continue home buspirone and as needed lorazepam Consider addition of SSRI-defer to outpatient setting (8) Thrombocytopenia: Plan: Likely secondary to cirrhosis, mild in the low 100s Follow CBC periodically (9) GERD (gastroesophageal reflux disease): Plan: Continue PPI Has a history of Zenker's diverticulum-follows with GI (10) Aspiration into airway: Plan: Noted on esophageal imaging report reviewed from outside studies Follows with GI and pulmonology Appreciate Speech tx consult-needs esophageal diet, smaller portions, video swallow planned for tomorrow (11) PAUL positive: Plan: Noted on outside labs, ordered by pulmonology and patient made reference to the fact that she is being referred to a care associate She also has cirrhosis open perhaps it is part of the workup for autoimmune hepatitis? Plan Chronic pain/neuropathy-continue gabapentin, tramadol as needed Allergies-continue cetirizine as needed DVT prophylaxis-Lovenox SQ Disposition-continued stay on PCU, improving, possible discharge to home in 1 to 2 days after home BiPAP arranged Full code and reports she would like her sister and her son to be her decision makers if she is unable to make decisions I called her sister and left a voicemail on 11/06 and again on 11/07 I did discuss her care with her sister on the phone on 11/07 Admission and Anticipated Discharge Date Admission Date: November 06, 2023 Subjective Patient was able to wear BiPAP for most of the night last night but did not like it. She feels less short of breath in general. She is eating and drinking. Feels her leg swelling is really completely resolved. Telemetry with normal sinus rhythm with rates in the 80s to 90s Physical Exam Constitutional: WD/WN, vitals as above Neck: trachea midline, no thyromegaly Respiratory: normal respiratory effort; no cough Auscultation: + diminished lung sounds (At bases); no crackles, no rhonchi and no wheezes Cardiovascular: Rate/Rhythm: regular rate and regular rhythm Heart Sounds: no murmur Extremities: no edema (Completely resolved) Gastrointestinal (Abdomen): normal bowel sounds, soft, nontender, no hepatosplenomegaly Psychiatric: Orientation: alert, oriented to person, oriented to place and cooperative Results & Data Results & Data Vital Signs (Past 12 Hours) Vital Signs Temp Pulse Pulse Resp BP Pulse Ox O2 Del Method 11/09/23 15:32 36.6 C 91 H 19 95/66 L 97 Nasal Cannula 11/09/23 15:29 90 11/09/23 10:47 36.6 C 97 H 20 117/80 98 Nasal Cannula 11/09/23 08:00 Nasal Cannula 11/09/23 07:51 82 11/09/23 07:13 36.6 C 79 20 113/79 90 Room Air O2 Flow Rate 11/09/23 15:32 3 11/09/23 15:29 11/09/23 10:47 3 11/09/23 08:00 2 11/09/23 07:51 11/09/23 07:13 Laboratory Results BMP, LFTs, magnesium, urine culture reviewed PG Care Time/CCT Total # of Minutes Spent Total Time Spent with Patient: Total time spent is greater than 50% in coordination of care (as documented) at patient's floor/unit and/or counseling patient: Coding Level of Care Code 62217 SUB INP/OBS CARE 2/35MIN Diagnoses Acute respiratory failure with hypoxia and hypercarbia J96.01; J96.02 (HFpEF) heart failure with preserved ejection fraction I50.30 Diabetes mellitus type 2 in obese E11.69; E66.9 Cirrhosis K74.60 HTN (hypertension), benign I10 COPD (chronic obstructive pulmonary disease) J44.9 Depression with anxiety F41.8 Thrombocytopenia D69.6 GERD (gastroesophageal reflux disease) K21.9 Aspiration into airway T17.908A PAUL positive R76.8
[2023-11-10 06:05] LABS: Base Excess ABG 13.4 mEq/L (-9-1.8); HCO3 ABG 44 mmol/L (19-24); Oxygen Saturation ABG 98.9 % (90-95); PCO2 ABG 87 mmHg (35-46); PO2 ABG 88 mmHg (80-95); pH ABG 7.31 (7.35-7.45)
[2023-11-10 06:15] LABS: Allen Test Pos (Pos); Basophils # (auto) 0.03 K/uL (0.00-0.20); Eosinophils # (auto) 0.08 K/uL (0.00-0.50); Eosinophils % (auto) 2.7 %; Hematocrit (blood only) 42.1 % (37.0-47.0); Hemoglobin 12.9 g/dl (12.0-16.0); Immature Granulocytes # (auto) 0.01 K/uL (0.01-0.20); Immature Granulocytes % (auto) 0.3 %; Lymphocytes # (auto) 0.68 K/uL (1.20-3.40); Lymphocytes % (auto) 22.7 %; Mean Corpuscular Hemoglobin 29.3 pg (25.0-34.0); Mean Corpuscular Hgb Conc 30.6 g/dL (32.0-36.0); Mean Corpuscular Volume 95.7 fL (80.0-100.0); Mean Platelet Volume 10.9 fL (9.4-12.4); Monocytes # (auto) 0.39 K/uL (0.11-0.59); Neutrophils % (auto) 60.3 %; Platelet Count 83 K/uL (130-400); RDW Coefficient of Variation 13.1 % (11.5-14.5); RDW Standard Deviation 46.3 fL (36.4-46.3); White Blood Count 2.99 K/ul (4.8-10.8)
[2023-11-10] MEDS: traMADol HCL 50 MG TABLET PO PRN (06:25)
[2023-11-10 06:35] LABS: Albumin Globulin Ratio 1.2 (0.9-2); Albumin Level 3.3 gm/dl (3.4-5.0); BUN Creatinine Ratio 33.3 (10-20); Bilirubin,Total 0.6 mg/dl (0.2-1.0); Calcium 9.1 mg/dl (8.6-10.3); Creatinine Clr Calc Pharmacy 46.1 ml/min; Est GFR (African American) 54.4 ml/min; Globulin 2.8 gm/dl (2.5-4.0); Magnesium 2.3 mg/dl (1.7-2.4); Potassium 4.4 mmol/L (3.5-5.1); Total Protein 6.1 gm/dl (6.0-8.3)
--- NOTE | 2023-11-10 12:50 | Hospitalist Progress Note ---
Date of Service November 10, 2023 Assessment & Plan (1) Acute respiratory failure with hypoxia and hypercarbia: Plan: Presents with worsening weight gain, peripheral edema, abdominal discomfort, orthopnea and shortness of breath over several months Chest x-ray consistent with heart failure. She is on torsemide every other day at home but no old cardiology records available at this time. Interestingly, BNP is normal but she is obese so could be falsely low. BNP on outside labs from 1 month ago was elevated. No ischemic changes on ECG and troponin negative Also with history of possible COPD vs restrictive lung disease as she is on maintenance inhalers, but no wheezing on examination. She does have significant chronic metabolic alkalosis which is compensatory with a normal pH on VBG and elevated CO2. 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 Serum bicarbonate now down to 43 after receiving 1 dose of Diamox and starting on BiPAP therapy at nighttime Improving with diuresis. Echocardiogram with mild LVH and mildly dilated RV with normal function, preserved EF, normal valves Started spironolactone 12.5 mg p.o. daily Continue on telemetry monitoring for arrhythmia-remains in sinus rhythm Encouraged use of BiPAP at bedtime and will see if can get qualified for home BiPAP-overnight POx on 2LNC was normal, but AM ABG very abnormal at 7.31/87/88 on 2LNC She would like to switch to [place] [facility]-will get her a referral to outpt [place] [facility] Keep pulse ox greater than 88% with supplemental O2 and wean off as able to-will likely need continuous O2 on discharge (2) (HFpEF) heart failure with preserved ejection fraction: Plan: Presented with symptoms as above, now improving on IV diuretics with less orthopnea and significantly improved peripheral edema, weight is down Strict I's and O's, daily weights, low-sodium diet, fluid restrict Received IV Lasix and 1 dose of Diamox, much improved Added aldactone 12.5 mg daily given h/o cirrhosis Watch BMP (3) Diabetes mellitus type 2 in obese: Plan: With some hypoglycemia now improved with lowering Lantus dose Continue Lantus 10 units twice a day and continue NovoLog sliding scale Hemoglobin A1c well-controlled at 7.2% Continue Accu-Cheks before meals and at bedtime (4) Cirrhosis: Plan: As per report but no imaging to confirm although this would account for her mild thrombocytopenia. LFTs are normal Continue to keep bowels moving with Linzess Follows with GI Some of her mild confusion on admission could be from hyperammonemia but this was not checked and now her mentation is normal Added on spironolactone as above (5) HTN (hypertension), benign: Plan: Blood pressures are controlled Holding home lisinopril while diuresing And may not need to resume given soft BPs (6) COPD (chronic obstructive pulmonary disease): Plan: Questionable diagnosis but is on maintenance inhalers for such After discussion with the patient's sister, it seems more likely she has restrictive lung disease, awaiting faxed PFT results Suspect more of a hypoventilation syndrome from diaphragm paralysis and/or obesity hypoventilation- will work on getting BiPAP Recent CT of the chest shows more evidence of CHF but she has significantly elevated CO2 on both VBG and compensatory metabolic alkalosis Trial BiPAP while here and she would likely qualify for home BiPAP (7) Depression with anxiety: Plan: Reports of her son in May and after a long illness, she was depressed about his illness Continue home buspirone and as needed lorazepam Consider addition of SSRI-defer to outpatient setting (8) Thrombocytopenia: Plan: Likely secondary to cirrhosis, mild in the low 100s Follow CBC periodically (9) GERD (gastroesophageal reflux disease): Plan: Continue PPI Has a history of Zenker's diverticulum-follows with GI (10) Aspiration into airway: Plan: Noted on esophageal imaging report reviewed from outside studies Follows with GI and pulmonology Appreciate Speech tx consult-needs esophageal diet, smaller portions, video swallow planned for today (11) PAUL positive: Plan: Noted on outside labs, ordered by pulmonology and patient made reference to the fact that she is being referred to a deputy sheriff generalist She also has cirrhosis open perhaps it is part of the workup for autoimmune hepatitis? Plan Chronic pain/neuropathy-continue gabapentin, tramadol as needed Allergies-continue cetirizine as needed DVT prophylaxis-Lovenox SQ Disposition-continued stay on PCU, improving, possible discharge to home in 1 to 2 days after home Queenie arranged Full code and reports she would like her sister and her son to be her decision makers if she is unable to make decisions I called her sister and left a voicemail on 11/06 and again on 11/07 I did discuss her care with her sister on the phone on 11/07 Admission and Anticipated Discharge Date Admission Date: November 06, 2023 Subjective Feeling better, no abd discomfort, leg swelling remains down. Is remaining upright when she eats. No SOB Tele with NSR rate 80-90s Physical Exam Constitutional: WD/WN, vitals as above Neck: trachea midline, no thyromegaly Respiratory: normal respiratory effort; no cough Auscultation: + diminished lung sounds (At bases); no crackles, no rhonchi and no wheezes Cardiovascular: Rate/Rhythm: regular rate and regular rhythm Heart Sounds: no murmur Extremities: no edema (Completely resolved) Gastrointestinal (Abdomen): normal bowel sounds, soft, nontender, no hepatosplenomegaly Psychiatric: Orientation: alert, oriented to person, oriented to place and cooperative Results & Data Results & Data Vital Signs (Past 12 Hours) Vital Signs Temp Pulse Pulse Resp BP BP Pulse Ox 11/10/23 10:24 36.4 C L 80 20 96/66 L 98 11/10/23 08:00 11/10/23 06:59 36.6 C 82 20 103/70 97 11/10/23 02:32 95 H 11/10/23 02:28 36.5 C 92 H 16 110/66 95 Pulse Ox O2 Del Method O2 Del Method O2 Flow Rate O2 Flow Rate 11/10/23 10:24 Nasal Cannula 3 11/10/23 08:00 Nasal Cannula 2 11/10/23 06:59 Nasal Cannula 3 11/10/23 02:32 97 Nasal Cannula 2 11/10/23 02:28 Nasal Cannula Laboratory Results CBC, BMP, ABG, magnesium, LFTs reviewed Diagnostic Findings Overnight POx study reviewed PG Care Time/CCT Total # of Minutes Spent Total Time Spent with Patient: Total time spent is greater than 50% in coordination of care (as documented) at patient's floor/unit and/or counseling patient: Coding Level of Care Code 79436 SUB INP/OBS CARE 2/35MIN Diagnoses Acute respiratory failure with hypoxia and hypercarbia J96.01; J96.02 (HFpEF) heart failure with preserved ejection fraction I50.30 Diabetes mellitus type 2 in obese E11.69; E66.9 Cirrhosis K74.60 HTN (hypertension), benign I10 COPD (chronic obstructive pulmonary disease) J44.9 Depression with anxiety F41.8 Thrombocytopenia D69.6 GERD (gastroesophageal reflux disease) K21.9 Aspiration into airway T17.908A PAUL positive R76.8
--- NOTE | 2023-11-10 14:32 | Fluoroscopy Report ---
FL video swallow CLINICAL HISTORY: assess for aspiration TECHNIQUE: Video fluoroscopy of the pharyngeal region was performed as barium mixtures of varying con sistencies were administered to the patient by the speech pathologist. A formal esophagram was not pe rformed. Comparison: None available at the time of this dictation. FINDINGS: Total fluoroscopy time: 1.29 minutes. Radiation dose: 6.99 mGy. Flash penetration and trace aspiration was seen with thin liquids. There was no laryngeal vestibular penetration or liliana tracheal aspiration. Pooling of barium was noted in the bilateral piriform sinus es and valleculae. Esophageal retention seen. IMPRESSION: Flash penetration and trace aspiration with thin liquids. Esophageal retention. Please see the speech pathology report for further details. ACT 112: Negative or not required by law. Electronically signed by: Shadi Francis M.D. 11/10/2023 2:31 PM
[2023-11-11 08:14] LABS: BUN Creatinine Ratio 37.3 (10-20); Calcium 9.1 mg/dl (8.6-10.3); Creatinine Clr Calc Pharmacy 51.5 ml/min; Est GFR (African American) 62.3 ml/min; Est GFR (Non-African American) 53.8 ml/min; Magnesium 2.5 mg/dl (1.7-2.4); Potassium 4.7 mmol/L (3.5-5.1)
--- NOTE | 2023-11-11 17:27 | Hospitalist Progress Note ---
Date of Service November 11, 2023 Assessment & Plan (1) Acute respiratory failure with hypoxia and hypercarbia: Plan: Presents with worsening weight gain, peripheral edema, abdominal discomfort, orthopnea and shortness of breath over several months Chest x-ray consistent with heart failure. She is on torsemide every other day at home but no old cardiology records available at this time. Interestingly, BNP is normal but she is obese so could be falsely low. BNP on outside labs from 1 month ago was elevated. No ischemic changes on ECG and troponin negative Had PFTs with pulmonology as an outpatient which showed severe obstructive and severe restrictive lung disease that was partially responsive to bronchodilator She does have significant chronic metabolic alkalosis which is compensatory with a normal pH on VBG and elevated CO2. 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 Serum bicarbonate now down to 43 after receiving 1 dose of Diamox and starting on NIV therapy at nighttime Improving with diuresis. Echocardiogram with mild LVH and mildly dilated RV with normal function, preserved EF, normal valves Started spironolactone 12.5 mg p.o. daily and now add Lasix 20 mg p.o. daily as renal function is stable Continue on telemetry monitoring for arrhythmia-remains in sinus rhythm Continue NIV at bedtime - AM ABG very abnormal at 7.31/87/88 on 2LNC She would like to switch to [place] [facility]-will get her a referral to outpt [place] [facility] Keep pulse ox greater than 88% with supplemental O2 and wean off as able to-will likely need continuous O2 on discharge Given her severe COPD as well as severe restrictive lung disease and her acute on chronic respiratory failure with hypoxia and hypercapnia, she is at risk of harm, risk of hospital readmission and further decline in health without home NIV regime. Patient requires home NIV for guaranteed lung volumes and backup battery with home RT follow-up regime, therefore ordered over standard bilevel BiPAP. (2) (HFpEF) heart failure with preserved ejection fraction: Plan: Presented with symptoms as above, now improving on IV diuretics with less orthop frandy and significantly improved peripheral edema, weight is down Strict I's and O's, daily weights, low-sodium diet, fluid restrict Received IV Lasix and 1 dose of Diamox, much improved Added aldactone 12.5 mg daily given h/o cirrhosis and will now add Lasix 20 mg p.o. daily Watch BMP (3) Diabetes mellitus type 2 in obese: Plan: With some hypoglycemia now improved with lowering Lantus dose Continue Lantus 10 units twice a day and continue NovoLog sliding scale Hemoglobin A1c well-controlled at 7.2% Continue Accu-Cheks before meals and at bedtime (4) Cirrhosis: Plan: As per report but no imaging to confirm although this would account for her mild thrombocytopenia. LFTs are normal Continue to keep bowels moving with Linzess Follows with GI Some of her mild confusion on admission could be from hyperammonemia but this was not checked and now her mentation is normal Added on spironolactone and now Lasix as above (5) HTN (hypertension), benign: Plan: Blood pressures are controlled Holding home lisinopril while diuresing And may not need to resume given soft BPs (6) COPD (chronic obstructive pulmonary disease): Plan: Has formal PFTs as an outpatient recently but shows severe obstructive and severe restrictive disease with some bronchodilator response Recent CT of the chest shows more evidence of CHF but she has significantly elevated CO2 on both VBG and compensatory metabolic alkalosis Plan for NIV at home as above Continue maintenance inhalers and bronchodilators as needed (7) Depression with anxiety: Plan: Reports of her son in May and after a long illness, she was depressed about his illness Continue home buspirone and as needed lorazepam Discussed with patient about depression and she is willing to start Zoloft 25 mg daily-recommend stay on this for 2 weeks and increasing as an outpatient with PCP She denies SI/HI (8) Thrombocytopenia: Plan: Likely secondary to cirrhosis, mild in the 80s-100s Follow CBC periodically (9) GERD (gastroesophageal reflux disease): Plan: Continue PPI Has a history of Zenker's diverticulum-follows with GI (10) Aspiration into airway: Plan: Noted on esophageal imaging report reviewed from outside studies Follows with GI and pulmonology Appreciate Speech tx consult-needs esophageal diet, smaller portions, video swallow showed mild oropharyngeal dysphagia and esophageal dysfunction. Trace aspiration of thin liquids via straw that independently redirected out of the airway. Mild oral retention of solids cleared with a cleansing swallow. Recommend regular diet and thin liquids and avoiding foods that are dry thick pasty and doughy. Adding extra condiments to foods such as sauce/gravy/butter to assist in keeping foods moist. Recommend aspiration precautions be fully upright and alert for all meals, small bites with small sips at a slow rate. Mouth care throughout the day and consider GI follow-up (11) PAUL positive: Plan: Noted on outside labs, ordered by pulmonology and patient made reference to the fact that she is being referred to a [facility] She also has cirrhosis open perhaps it is part of the workup for autoimmune hepatitis? Plan Chronic pain/neuropathy-continue gabapentin, tramadol as needed Allergies-continue cetirizine as needed DVT prophylaxis-Lovenox SQ Disposition-continued stay on PCU, improving, possible discharge to home in 1 to 2 days after home and IV arranged Full code and reports she would like her sister and her son to be her decision makers if she is unable to make decisions discussed her care with her sister on the phone on 11/07 Admission and Anticipated Discharge Date Admission Date: November 06, 2023 Subjective Still has complaints of occasional jerks of the arms and numbness in her legs and hands. Was able to tolerate the NIV for few hours last night but it was leaking. She certainly has acute on chronic respiratory failure and continues to need supplemental O2 [id number] as well as NIV at nighttime. Still feels a little bit of abdominal distention Telemetry with normal sinus rhythm with rates in the 80s to 90s Physical Exam Constitutional: WD/WN, vitals as above Neck: trachea midline, no thyromegaly Respiratory: normal respiratory effort; no cough Auscultation: + diminished lung sounds (At bases); no crackles, no rhonchi and no wheezes Cardiovascular: Rate/Rhythm: regular rate and regular rhythm Heart Sounds: no murmur Extremities: no edema (Completely resolved) Gastrointestinal (Abdomen): normal bowel sounds, soft, nontender, no hepatosplenomegaly Psychiatric: Orientation: alert, oriented to person, oriented to place and cooperative Results & Data Results & Data Vital Signs (Past 12 Hours) Vital Signs Temp Pulse Pulse Resp BP Pulse Ox O2 Del Method 11/11/23 16:23 36.7 C 91 H 18 100/68 98 Nasal Cannula 11/11/23 16:00 96 H 11/11/23 11:21 36.6 C 92 H 20 115/71 93 Nasal Cannula 11/11/23 08:03 36.5 C 86 20 111/74 96 Nasal Cannula 11/11/23 08:00 89 11/11/23 07:35 Nasal Cannula O2 Flow Rate 11/11/23 16:23 2.0 11/11/23 16:00 11/11/23 11:21 2.0 11/11/23 08:03 2.0 11/11/23 08:00 11/11/23 07:35 2 Laboratory Results BMP, magnesium reviewed PG Care Time/CCT Total # of Minutes Spent Total Time Spent with Patient: Total time spent is greater than 50% in coordination of care (as documented) at patient's floor/unit and/or counseling patient: Coding Level of Care Code 39522 SUB INP/OBS CARE 2/35MIN Diagnoses Acute respiratory failure with hypoxia and hypercarbia J96.01; J96.02 (HFpEF) heart failure with preserved ejection fraction I50.30 Diabetes mellitus type 2 in obese E11.69; E66.9 Cirrhosis K74.60 HTN (hypertension), benign I10 COPD (chronic obstructive pulmonary disease) J44.9 Depression with anxiety F41.8 Thrombocytopenia D69.6 GERD (gastroesophageal reflux disease) K21.9 Aspiration into airway T17.908A PAUL positive R76.8
--- NOTE | 2023-11-11 20:27 | Ultrasound Report ---
US abdomen limited CLINICAL HISTORY: assess for ascites TECHNIQUE: Multiple real-time sonographic images of the abdomen were obtained. Comparison: None available at the time of this dictation. FINDINGS/IMPRESSION: No ascites is seen at this time. ACT 112: Negative or not required by law. Electronically signed by: Shadi Francis M.D. 11/11/2023 8:25 PM
[2023-11-11] MEDS: SERTRALINE HCL 50 MG TABLET PO SCH (20:35)
[2023-11-12 08:02] LABS: Basophils # (auto) 0.03 K/uL (0.00-0.20); Eosinophils # (auto) 0.08 K/uL (0.00-0.50); Eosinophils % (auto) 2.6 %; Hematocrit (blood only) 42.4 % (37.0-47.0); Hemoglobin 12.7 g/dl (12.0-16.0); Immature Granulocytes # (auto) 0.01 K/uL (0.01-0.20); Immature Granulocytes % (auto) 0.3 %; Lymphocytes # (auto) 0.53 K/uL (1.20-3.40); Lymphocytes % (auto) 17.5 %; Mean Corpuscular Volume 96.8 fL (80.0-100.0); Mean Platelet Volume 11.8 fL (9.4-12.4); Monocytes # (auto) 0.32 K/uL (0.11-0.59); Monocytes % (auto) 10.6 %; Neutrophils # (auto) 2.06 K/uL (1.40-6.50); Platelet Count 80 K/uL (130-400); RDW Coefficient of Variation 12.7 % (11.5-14.5); RDW Standard Deviation 45.6 fL (36.4-46.3); Red Blood Count 4.38 M/uL (4.20-5.40); White Blood Count 3.03 K/ul (4.8-10.8)
[2023-11-12 08:25] LABS: BUN Creatinine Ratio 46.7 (10-20); Calcium 9.3 mg/dl (8.6-10.3); Creatinine Clr Calc Pharmacy 61.4 ml/min; Est GFR (African American) 77.3 ml/min; Est GFR (Non-African American) 66.7 ml/min; Magnesium 2.4 mg/dl (1.7-2.4); Potassium 4.9 mmol/L (3.5-5.1)
[2023-11-12] MEDS: FUROSEMIDE 20 MG TAB PO SCH (08:30)
--- NOTE | 2023-11-12 17:18 | Hospitalist Progress Note ---
Date of Service November 12, 2023 Assessment & Plan (1) Acute respiratory failure with hypoxia and hypercarbia: Plan: Presents with worsening weight gain, peripheral edema, abdominal discomfort, orthopnea and shortness of breath over several months Chest x-ray consistent with heart failure. She is on torsemide every other day at home Interestingly, BNP is normal but she is obese so could be falsely low. BNP on outside labs from 1 month ago was elevated. No ischemic changes on ECG and troponin negative Had PFTs with pulmonology as an outpatient which showed severe obstructive and severe restrictive lung disease that was partially responsive to bronchodilator She does have significant chronic metabolic alkalosis which is compensatory with a normal pH on VBG and elevated CO2. 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 Serum bicarbonate now down to 43 after receiving 1 dose of Diamox and starting on NIV therapy at nighttime Improving with diuresis. Echocardiogram with mild LVH and mildly dilated RV with normal function, preserved EF, normal valves Started spironolactone 12.5 mg p.o. daily and then added Lasix 20 mg p.o. daily as renal function is stable Continue on telemetry monitoring for arrhythmia-remains in sinus rhythm Continue NIV at bedtime - AM ABG very abnormal at 7.31/87/88 on 2LNC She would like to switch to [facility]-will get her a referral to outpt [facility] Keep pulse ox greater than 88% with supplemental O2 and wean off as able to-will order 2 step walk test prior to discharge Given her severe COPD as well as severe restrictive lung disease and her acute on chronic respiratory failure with hypoxia and hypercapnia, she is at risk of harm, risk of hospital readmission and further decline in health without home NIV regime. Patient requires home NIV for guaranteed lung volumes and backup battery with home RT follow-up regime, therefore ordered over standard bilevel BiPAP. (2) (HFpEF) heart failure with preserved ejection fraction: Plan: Presented with symptoms as above, now improving on IV diuretics with less orthopnea and significantly improved peripheral edema, weight is down Strict I's and O's, daily weights, low-sodium diet, fluid restrict Received IV Lasix and 1 dose of Diamox, much improved Added aldactone 12.5 mg daily given h/o cirrhosis and added Lasix 20 mg p.o. daily Watch BMP (3) Diabetes mellitus type 2 in obese: Plan: With some hypoglycemia now improved with lowering Lantus dose Continue Lantus 10 units twice a day and continue NovoLog sliding scale Hemoglobin A1c well-controlled at 7.2% Continue Accu-Cheks before meals and at bedtime She will need to likely increase her insulin closer to her home regimen on discharge as her family reports she eats a lot of carbs at home (4) Cirrhosis: Plan: As per report but no imaging to confirm although this would account for her mild thrombocytopenia. LFTs are normal Continue to keep bowels moving with Linzess Follows with GI Some of her mild confusion on admission could be from hyperammonemia but this was not checked and now her mentation is normal after correction of hypoxia and improvement of hypercapnia Added on spironolactone and now Lasix as above Checked abdominal ultrasound for ascites-none (5) HTN (hypertension), benign: Plan: Blood pressures are controlled Discontinue home lisinopril given soft BPs from addition of Aldactone and Lasix (6) COPD (chronic obstructive pulmonary disease): Plan: Has formal PFTs as an outpatient recently but shows severe obstructive and severe restrictive disease with some bronchodilator response Recent CT of the chest shows more evidence of CHF but she has significantly elevated CO2 on both VBG and compensatory metabolic alkalosis Plan for NIV at home as above Continue maintenance inhalers and bronchodilators as needed (7) Depression with anxiety: Plan: Reports of her son in May and after a long illness, she was depressed about his illness Continue home buspirone and as needed lorazepam Discussed with patient about depression and she is willing to start Zoloft 25 mg daily-recommend stay on this for 2 weeks and increasing as an outpatient with PCP She denies SI/HI (8) Thrombocytopenia: Plan: Likely secondary to cirrhosis, mild in the 80s-100s Follow CBC periodically (9) GERD (gastroesophageal reflux disease): Plan: Continue PPI Has a history of Zenker's diverticulum-follows with GI (10) Aspiration into airway: Plan: Noted on esophageal imaging report reviewed from outside studies Follows with GI and pulmonology Appreciate Speech tx consult-needs esophageal diet, smaller portions, video swallow showed mild oropharyngeal dysphagia and esophageal dysfunction. Trace aspiration of thin liquids via straw that independently redirected out of the airway. Mild oral retention of solids cleared with a cleansing swallow. Recommend regular diet and thin liquids and avoiding foods that are dry thick pasty and doughy. Adding extra condiments to foods such as sauce/gravy/butter to assist in keeping foods moist. Recommend aspiration precautions be fully upright and alert for all meals, small bites with small sips at a slow rate. Mouth care throughout the day and consider GI follow-up (11) PAUL positive: Plan: Noted on outside labs, ordered by pulmonology and patient made reference to the fact that she is being referred to a machine operator cane cutter She also has cirrhosis and this was found as part of the workup for autoimmune hepatitis Plan Chronic pain/neuropathy-continue gabapentin, tramadol as needed Allergies-continue cetirizine as needed DVT prophylaxis-Lovenox SQ Disposition-continued stay on PCU, improving, discharged home tomorrow after Trilogy delivered and after two-step walk test Full code and reports she would like her sister and her son to be her decision makers if she is unable to make decisions discussed her care with her sister on the phone on 11/07 and again at length on 11/11 Admission and Anticipated Discharge Date Admission Date: November 06, 2023 Subjective Patient reports tolerating the NIV again overnight better than previous. Denies shortness of breath No other concerns. Telemetry with normal sinus rhythm with rates in the 80s to 90s I discussed her care with her sister on the phone. Physical Exam Constitutional: WD/WN, vitals as above Neck: trachea midline, no thyromegaly Respiratory: normal respiratory effort; no cough Auscultation: + diminished lung sounds (At bases); no crackles, no rhonchi and no wheezes Cardiovascular: Rate/Rhythm: regular rate and regular rhythm Heart Sounds: no murmur Extremities: no edema (Completely resolved) Gastrointestinal (Abdomen): normal bowel sounds, soft, nontender, no hepatosplenomegaly Psychiatric: Orientation: alert, oriented to person, oriented to place and cooperative Results & Data Results & Data Vital Signs (Past 12 Hours) Vital Signs Temp Pulse Pulse Resp BP Pulse Ox O2 Del Method 11/12/23 15:16 36.8 C 90 19 122/77 97 Nasal Cannula 11/12/23 14:08 89 11/12/23 10:52 36.7 C 89 19 124/79 95 Nasal Cannula 11/12/23 08:00 Nasal Cannula 11/12/23 07:55 91 H 11/12/23 07:34 36.8 C 90 19 134/79 93 Nasal Cannula O2 Flow Rate 11/12/23 15:16 2 11/12/23 14:08 11/12/23 10:52 2 11/12/23 08:00 2 11/12/23 07:55 11/12/23 07:34 2 PG Care Time/CCT Total # of Minutes Spent Total Time Spent with Patient: Total time spent is greater than 50% in coordination of care (as documented) at patient's floor/unit and/or counseling patient: Coding Level of Care Code 86126 SUB INP/OBS CARE 2/35MIN Diagnoses Acute respiratory failure with hypoxia and hypercarbia J96.01; J96.02 (HFpEF) heart failure with preserved ejection fraction I50.30 Diabetes mellitus type 2 in obese E11.69; E66.9 Cirrhosis K74.60 HTN (hypertension), benign I10 COPD (chronic obstructive pulmonary disease) J44.9 Depression with anxiety F41.8 Thrombocytopenia D69.6 GERD (gastroesophageal reflux disease) K21.9 Aspiration into airway T17.908A PAUL positive R76.8
--- NOTE | 2023-11-13 12:05 | Discharge Summary ---
Date of Service November 13, 2023 Admission HPI Per Admitting Provider This patient is a 62-year-old female with a history of possible COPD from secondhand smoke, DM 2, CHF, cirrhosis of the liver, allergies, neuropathy, HTN, chronic constipation, and anxiety/depression who presents to the ER with ongoing and worsening shortness of breath, orthopnea, leg swelling and weight gain over the last several months. She complains of chronic upper abdominal pressure as well. She reports being in and out of [facility] a couple of times and has been seen by a automotive fleet supervisor and power brake rebuilder. Her sister later called in and told the nurse that the patient was recently diagnosed with cirrhosis of the liver. Patient also complains of pain in the right side of the jaw that came on acutely after using a Q-tip yesterday and complains of painful teeth that are "rotten." Denies fevers or chills, denies productive cough. No blood in her stool or urine. She was noted initially to be mildly confused in the ER but this improved after she was placed on supplemental oxygen and her hypoxia improved. She was then placed on BiPAP for her elevated CO2 levels. In the ER, she was noted to be hypoxic to 83% on room air and significantly hypercapnic but her pH was normal on VBG. Chest x-ray was consistent with cardiomegaly and pulmonary edema with pleural effusions. She was given a dose of IV Lasix. Principal Diagnosis acute hypoxic and hypercapnic respiratory failure Discharge Exam Constitutional: WD/WN, vitals as above Neck: trachea midline, no thyromegaly Respiratory: normal respiratory effort; no cough Auscultation: + diminished lung sounds (At bases); no crackles, no rhonchi and no wheezes Cardiovascular: Rate/Rhythm: regular rate and regular rhythm Heart Sounds: no murmur Extremities: no edema (Completely resolved) Gastrointestinal (Abdomen): normal bowel sounds, soft, nontender, no hepatosplenomegaly Psychiatric: Orientation: alert, oriented to person, oriented to place and cooperative Discharge Data Allergies Allergy/AdvReac Type Severity Reaction Status Date / Time amoxicillin Allergy Severe Caused Unverified 11/06/23 08:33 itching in joints Penicillins Allergy Severe Caused Unverified 11/06/23 08:33 itching in joints vancomycin AdvReac Severe Caused Unverified 11/06/23 08:33 Kidney Damage Consultations 11/06/23 06:20 ED Decision to Admit Stat 11/08/23 15:18 HIM [Consult Health Information Management] Routine Ordered Studies 11/10/23 13:00 FL video swallow Routine 11/11/23 17:33 US abdomen limited Routine Hospital Course (1) Acute respiratory failure with hypoxia and hypercarbia: Presents with worsening weight gain, peripheral edema, abdominal discomfort, orthopnea and shortness of breath over several months Chest x-ray consistent with heart failure. She is on torsemide every other day at home Interestingly, BNP is normal but she is obese so could be falsely low. BNP on outside labs from 1 month ago was elevated. No ischemic changes on ECG and troponin negative Had PFTs with pulmonology as an outpatient which showed severe obstructive and severe restrictive lung disease that was partially responsive to bronchodilator She does have significant chronic metabolic alkalosis which is compensatory with a normal pH on VBG and elevated CO2. 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 Echocardiogram with mild LVH and mildly dilated RV with normal function, preserved EF, normal valves 2 step showed: patient reuiqres 2 liters of oxygen on ambulation. No oxygen at rest. Started spironolactone 12.5 mg p.o. daily and then added Lasix 20 mg p.o. daily as renal function is stable Continue NIV at bedtime She would like to switch to [facility]-will get her a referral to outpt [facility] Given her severe COPD as well as severe restrictive lung disease and her acute on chronic respiratory failure with hypoxia and hypercapnia, she is at risk of harm, risk of hospital readmission and further decline in health without home NIV regime. Patient requires home NIV for guaranteed lung volumes and backup battery with home RT follow-up regime, therefore ordered over standard bilevel BiPAP. (2) (HFpEF) heart failure with preserved ejection fraction: Presented with symptoms as above, now improving on IV diuretics with less orthopnea and significantly improved peripheral edema, weight is down Strict I's and O's, daily weights, low-sodium diet, fluid restrict Received IV Lasix and 1 dose of Diamox, much improved Added aldactone 12.5 mg daily given h/o cirrhosis and added Lasix 20 mg p.o. daily Watch BMP in the outpatient setting (3) Diabetes mellitus type 2 in obese: With some hypoglycemia now improved with lowering Lantus dose Continue Lantus 10 units twice a day and continue NovoLog sliding scale Hemoglobin A1c well-controlled at 7.2% (4) Cirrhosis: As per report but no imaging to confirm although this would account for her mild thrombocytopenia. LFTs are normal Continue to keep bowels moving with Linzess Follows with GI Some of her mild confusion on admission could be from hyperammonemia but this was not checked and now her mentation is normal after correction of hypoxia and improvement of hypercapnia Added on spironolactone and now Lasix as above Checked abdominal ultrasound for ascites-none (5) HTN (hypertension), benign: Blood pressures are controlled Discontinue home lisinopril given soft BPs from addition of Aldactone and Lasix (6) COPD (chronic obstructive pulmonary disease): Has formal PFTs as an outpatient recently but shows severe obstructive and severe restrictive disease with some bronchodilator response Recent CT of the chest shows more evidence of CHF but she has significantly elevated CO2 on both VBG and compensatory metabolic alkalosis Plan for NIV at home as above Continue maintenance inhalers and bronchodilators as needed (7) Depression with anxiety: Reports of her son in May and after a long illness, she was depressed about his illness Continue home buspirone and as needed lorazepam Discussed with patient about depression and she is willing to start Zoloft 25 mg daily-recommend stay on this for 2 weeks and increasing as an outpatient with PCP She denies SI/HI (8) Thrombocytopenia: Likely secondary to cirrhosis, mild in the 80s-100s Follow CBC periodically (9) GERD (gastroesophageal reflux disease): Continue PPI Has a history of Zenker's diverticulum-follows with GI (10) Aspiration into airway: Noted on esophageal imaging report reviewed from outside studies Follows with GI and pulmonology Appreciate Speech tx consult-needs esophageal diet, smaller portions, video swallow showed mild oropharyngeal dysphagia and esophageal dysfunction. Trace aspiration of thin liquids via straw that independently redirected out of the airway. Mild oral retention of solids cleared with a cleansing swallow. Recommend regular diet and thin liquids and avoiding foods that are dry thick pasty and doughy. Adding extra condiments to foods such as sauce/gravy/butter to assist in keeping foods moist. Recommend aspiration precautions be fully upright and alert for all meals, small bites with small sips at a slow rate. Mouth care throughout the day and consider GI follow-up (11) PAUL positive: Noted on outside labs, ordered by pulmonology and patient made reference to the fact that she is being referred to a nurse intern She also has cirrhosis and this was found as part of the workup for autoimmune hepatitis Plan Chronic pain/neuropathy-continue gabapentin, tramadol as needed Allergies-continue cetirizine as needed Total Time Total Time Spent Total Time Spent (In Minutes): 32 Discharge Plan Discharge Items Patient Disposition: Home - Self-Care Reason For Visit: CHF, HYPOXEMIA Discharge Diagnosis: CHF Activity: Resume your previous activity Non-emergency contact: Primary Care Provider Call non-emergency contact if: you have any medication questions Follow-up/Referrals: Angelo Alexis, [Primary Care Provider] - Diet: Carb Consistent or DM2 and Low Sodium (2gm) Addtl Attending Provider Instructions: We started spironolactone 12.5 mg once daily and then added Lasix 20 mg once daily. We will set up a referral to [facility] Please use oxygen 2 liters when you ambulate. We also added sertraline to treat your depression. We stopped lisinopril, meloxicam and torsemide. Recommend followup with PCP in 1-2 weeks. Pending Studies at Discharge: No Stand-Alone Forms: My [facility], Smoking Cessation Medications and DC Order Prescriptions: New spironolactone 25 mg Tablet 12.5 mg PO DAILY Qty: 30 0RF furosemide 20 mg Tablet 20 mg PO QAM Qty: 30 0RF sertraline 50 mg Tablet 25 mg PO HS Qty: 30 0RF Continued tramadol 50 mg tablet 50 mg PO Q6H PRN (Reason: Severe Pain (Scale Score 7-10)) lorazepam 0.5 mg tablet 0.5 mg PO BID PRN (Reason: severe anxiety) pantoprazole 40 mg tablet,delayed release (DR/EC) 40 mg PO DAILY buspirone 10 mg tablet 10 mg PO TID gabapentin 100 mg capsule 100 mg PO TID albuterol sulfate 90 mcg/actuation HFA aerosol inhaler 2 puff INHALATION Q3H PRN (Reason: Shortness Of Breath Or Wheezing) levocetirizine 5 mg tablet 5 mg PO QPM Arnuity Ellipta 100 mcg/actuation blister with device 1 inh INHALATION DAILY Rx Instructions: Rinse mouth and spit after each use Linzess 72 mcg capsule 72 mcg PO DAILY Changed insulin glargine [Lantus Solostar U-100 Insulin] 100 unit/mL (3 mL) insulin pen 10 unit SUBCUT BID Qty: 0 0RF Discontinued torsemide 20 mg tablet 20 mg PO Q OTHER DAY Rx Instructions: Take in the AM meloxicam 15 mg tablet 15 mg PO DAILY lisinopril 5 mg tablet 5 mg PO DAILY Discharge Orders: Discharge Order- CHF (Routine); Ordered 11/13/23 Ordered By: Nash Padilla/Other Patient Handouts: Low-Salt Choices, Heart Failure: Tracking Your Weight, Hypoglycemia (Low Blood Sugar), Managing Type 2 Diabetes, Heart Failure Make Changes Diet, Heart Failure Admission Data Admit Date/Time: 11/06/23 11:19 Attending Provider: Nash Dotson Admit Provider: Haleigh Epperson Primary Care Provider: Angelo Alexis Other Providers: Haleigh Epperson Other Interventions: Discharge Summary Assessment (RN) Last Done: 11/13/23 12:06 Coding Level of Care Code 59321 INP/OBS DISCH >30 MIN Diagnoses Acute respiratory failure with hypoxia and hypercarbia J96.01; J96.02 (HFpEF) heart failure with preserved ejection fraction I50.30 Diabetes mellitus type 2 in obese E11.69; E66.9 Cirrhosis K74.60 HTN (hypertension), benign I10 COPD (chronic obstructive pulmonary disease) J44.9 Depression with anxiety F41.8 Thrombocytopenia D69.6 GERD (gastroesophageal reflux disease) K21.9 Aspiration into airway T17.908A PAUL positive R76.8
== END 2023-11-13 15:32 | disposition home or self-care (01) | DRG 291 ==
LOC: SUATTDRO → ED 04:55 → SUATTDRO 11:19 → 2S 11:19
DX: J96.21 Acute and chronic respiratory failure with hypoxia; I50.33 Acute on chronic diastolic (congestive) heart failure; E87.3 Alkalosis; F41.8 Other specified anxiety disorders; Z88.0 Allergy status to penicillin; E11.40 Type 2 diabetes mellitus with diabetic neuropathy, unspecified; Z68.31 Body mass index [BMI] 31.0-31.9, adult; I11.0 Hypertensive heart disease with heart failure; K74.60 Unspecified cirrhosis of liver; E66.9 Obesity, unspecified; Z88.1 Allergy status to other antibiotic agents; E11.649 Type 2 diabetes mellitus with hypoglycemia without coma; Z79.4 Long term (current) use of insulin; K59.09 Other constipation; J44.9 Chronic obstructive pulmonary disease, unspecified; D69.59 Other secondary thrombocytopenia; K21.9 Gastro-esophageal reflux disease without esophagitis; Z79.899 Other long term (current) drug therapy; J96.22 Acute and chronic respiratory failure with hypercapnia